=== PATIENT | male | born 1975 | race Caucasian/White ===

== ENCOUNTER 2020-10-10 11:37 | Emergency (ER) | payer SELFPAY ==
[2020-10-10 13:20] LABS: Urine Blood 2+ (Negative); Urine Glucose Negative (Negative); Urine Protein 1+ (Negative); Urine Specific Gravity 1.025 (1.005-1.030); Urine pH 5.5 (5.0-7.0)
[2020-10-10 13:48] LABS: Urine Bacteria <20 /HPF (NONE SEEN); Urine RBC 20-50 /HPF (NONE SEEN)
--- NOTE | 2020-10-10 14:10 | EDPHYS ---
Physician Documentation [facility] Name: Chava Muniz Age: 45 yrs Sex: Male : 1975 Arrival Date: 10/10/2020 Time: 11:39 Bed 20 Private MD: ED Physician Braden Perez HPI: 10/10 13:14 This 45 yrs old Male presents to ER via Ambulatory with complaints of Penile pm1 Pain - swelling. 13:14 The patient presents with complaint of partial erection. Onset: The symptoms/episode pm1 began/occurred this morning, at 02:00. Modifying factors: The symptoms are alleviated by nothing, the symptoms are aggravated by nothing. Associated signs and symptoms: Pertinent positives: hematuria and burning with urination, Pertinent negatives: abdominal pain, fever, flank pain. Severity of symptoms: in the emergency department the symptoms have improved, No erection present. The patient has not experienced similar symptoms in the past. The patient has been recently seen by a physician: with different complaint(s), given antibiotic for dental pain yesterday by the dentist. Cialis last used 2 weeks ago. Historical: - Allergies: 12:26 No Known Allergies; ss - PMHx: 12:26 Kidney stones; Hypertension; adhd; ss - PSHx: 12:26 Appendectomy; Adenoids; Tonsillectomy; ss - Immunization history:: Adult Immunizations up to date. - Social history:: Smoking status: Patient denies any tobacco usage or history of. ROS: 13:14 Constitutional: Negative for fever, chills, and weight loss, Cardiovascular: Negative pm1 for chest pain, palpitations, and edema, Respiratory: Negative for shortness of breath, cough, wheezing, and pleuritic chest pain, Abdomen/GI: Negative for abdominal pain, nausea, vomiting, diarrhea, and constipation, Back: Negative for injury and pain, MS/Extremity: Negative for injury and deformity, Skin: Negative for injury, rash, and discoloration, Neuro: Negative for headache, weakness, numbness, tingling, and seizure. 13:14 : Positive for hematuria, burning with urination, penile pain, Negative for penile discharge, testicular pain Exam: 13:14 Constitutional: This is a well developed, well nourished patient who is awake, alert, pm1 and in no acute distress. Head/Face: Normocephalic, atraumatic. 13:14 Skin: Warm, dry with normal turgor. Normal color with no rashes, no lesions, and no evidence of cellulitis. MS/ Extremity: Pulses equal, no cyanosis. Neurovascular intact. Full, normal range of motion. 13:14 Cardiovascular: Exam negative for acute changes, Rate: normal, Rhythm: regular, Pulses: no pulse deficits are appreciated. 13:14 Respiratory: Exam negative for acute changes, respiratory distress, shortness of breath. 13:14 Abdomen/GI: Inspection: abdomen appears normal, Palpation: abdomen is soft and non-tender, in all quadrants. 13:14 : Male external genitalia: normal, no erection present, no tenderness or masses present to testicles, penile discharge, is absent, swelling, is not appreciated, tenderness, of the head of penis is noted, that is mild, Bladder: is normal, non-distended, non-tender, bladder scan 11 mL . 13:14 : [employer] [facility]. pm1 Vital Signs: 12:19 BP 126 / 92; Pulse 85; Resp 22; Temp 98.2(TE); Pulse Ox 100% on R/A; Weight 122.47 kg; ss Height 6 ft. 0 in. (182.88 cm); Pain 9/10; 13:20 BP 128 / 95; Pulse 83; Resp 23; Pulse Ox 100% ; rb3 14:19 BP 127 / 90; Pulse 85; Resp 21; Pulse Ox 100% ; rb3 12:19 Body Mass Index 36.62 (122.47 kg, 182.88 cm) MDM: 12:52 Patient medically screened. pm1 13:14 Refusal of service: The patient/guardian displays adequate decision making capability pm1 and despite a detailed discussion of alternatives, benefits, risks, and consequences refuses: prostate examination. 14:08 Data reviewed: vital signs. Data interpreted: Pulse oximetry: on room air is 100 %. pm1 Interpretation: normal. Counseling: I had a detailed discussion with the patient and/or guardian regarding: the historical points, exam findings, and any diagnostic results supporting the discharge/admit diagnosis, lab results, the need for outpatient follow up, for definitive care, a urologist, to return to the emergency department if symptoms worsen or persist or if there are any questions or concerns that arise at home. 14:08 ED course: Instructed to follow up with urology for need to further evaluate hematuria pm1 and possible cytoscopy. 10/10 13:00 Order name: Urine Microscopic Only; Complete Time: 13:56 pm1 10/10 13:20 Order name: Urine Dipstick-Ancillary; Complete Time: 13:41 EDMS 10/10 13:00 Order name: Urine Dipstick-Ancillary (obtain specimen); Complete Time: 13:24 pm1 10/10 13:00 Order name: Bladder Scanner; Complete Time: 13:42 pm1 10/10 13:50 Order name: Urine Culture EDMS Administered Medications: No medications were administered Disposition: 15:13 Co-signature as Attending Physician, Braden Perez MD. rn Disposition: 10/10/20 14:09 Discharged to Home. Impression: Hematuria. - Condition is Stable. - Discharge Instructions: Hematuria, Adult. - Prescriptions for Bactrim DS 800- 160 mg Oral Tablet - take 1 tablet by ORAL route every 12 hours for 10 days; 20 tablet. - Medication Reconciliation Form, Thank You Letter, Antibiotic Education, Prescription Opioid Use form. - Follow up: Emergency Department; When: As needed; Reason: Worsening of condition. Follow up: Private Physician; When: 2 - 3 days; Reason: Recheck today's complaints, Continuance of care, Re-evaluation by your physician. Follow up: Curry Tan MD; When: 2 - 3 days; Reason: Recheck today's complaints, Continuance of care, Re-evaluation by your physician. - Problem is new. - Symptoms have improved. Signatures: Dispatcher [employer] EDUT Braden Perez MD MD rn Smirch, Shelby, RN RN ss Dejon Ivory, RELATIONSHIP BANKER RELATIONSHIP BANKER pm1 Kimberly Francois, RN RN rb3 Corrections: (The following items were deleted from the chart) 14:10 14:09 10/10/2020 14:09 Discharged to Home. Impression: Hematuria. Condition is Stable. pm1 Forms are Medication Reconciliation Form, Thank You Letter, Antibiotic Education, Prescription Opioid Use. Follow up: Emergency Department; When: As needed; Reason: Worsening of condition. Follow up: Private Physician; When: 2 - 3 days; Reason: Recheck today's complaints, Continuance of care, Re-evaluation by your physician. Problem is new. Symptoms have improved. pm1 14:28 14:10 10/10/2020 14:09 Discharged to Home. Impression: Hematuria. Condition is Stable. rb3 Forms are Medication Reconciliation Form, Thank You Letter, Antibiotic Education, Prescription Opioid Use. Follow up: Emergency Department; When: As needed; Reason: Worsening of condition. Follow up: Private Physician; When: 2 - 3 days; Reason: Recheck today's complaints, Continuance of care, Re-evaluation by your physician. Follow up: Curry Tan; When: 2 - 3 days; Reason: Recheck today's complaints, Continuance of care, Re-evaluation by your physician. Problem is new. Symptoms have improved. pm1
--- NOTE | 2020-10-10 14:10 | ER ---
Nurse's Notes [facility] Name: Chava Muniz Age: 45 yrs Sex: Male : 1975 Arrival Date: 10/10/2020 Time: 11:39 Bed 20 Private MD: Diagnosis: Hematuria Presentation: 10/10 12:19 Chief complaint: Patient states: "Penis at "half mast" since this morning at 0230. Pt ss reports blood in urine as well. Hx of kidney stones. Coronavirus screen: Client denies travel out of the [place] in the last 14 days. Ebola Screen: Patient denies exposure to infectious person. Patient denies travel to an Ebola-affected area in the 21 days before illness onset. Initial Sepsis Screen: Does the patient meet any 2 criteria? No. Patient's initial sepsis screen is negative. Does the patient have a suspected source of infection? No. Patient's initial sepsis screen is negative. Risk Assessment: Do you want to hurt yourself or someone else? Patient reports no desire to harm self or others. Onset of symptoms was October 10, 2020. 12:19 Method Of Arrival: Ambulatory ss 12:19 Acuity: ALLA 2 ss Historical: - Allergies: 12:26 No Known Allergies; ss - PMHx: 12:26 Kidney stones; Hypertension; adhd; ss - PSHx: 12:26 Appendectomy; Adenoids; Tonsillectomy; ss - Immunization history:: Adult Immunizations up to date. - Social history:: Smoking status: Patient denies any tobacco usage or history of. Screenin:25 Abuse screen: Denies threats or abuse. Nutritional screening: No deficits noted. rb3 Tuberculosis screening: No symptoms or risk factors identified. Fall Risk None identified. Assessment: 12:25 General: Appears uncomfortable, Behavior is anxious, Denies fever. Pain: Complains of rb3 pain in Penile Pain currently is 8 out of 10 on a pain scale. Pain began this morning. Neuro: Level of Consciousness is awake, alert, obeys commands, Oriented to person, place, time, situation. Cardiovascular: Patient's skin is warm and dry. Respiratory: Airway is patent Respiratory effort is even, unlabored, Respiratory pattern is regular, symmetrical. GI: No signs and/or symptoms were reported involving the gastrointestinal system. : Reports pain with urination, Reports that urine is dark yellow and this morning he passed a blood clot while urinating. Pt. stated, "I have had a partial erection since early this morning and it will not go down.". 12:25 General: Denies taking any ED medications or injuring himself.. rb3 13:25 Reassessment: Patient appears in no apparent distress at this time. Pt. reports that rb3 his penis has went down and he is feeling better now. 14:25 Reassessment: Patient appears in no apparent distress at this time. Patient and/or rb3 family updated on plan of care and expected duration. Pain level reassessed. Patient is alert, oriented x 3, equal unlabored respirations, skin warm/dry/pink. Patient states feeling better. Patient states symptoms have improved. Vital Signs: 12:19 BP 126 / 92; Pulse 85; Resp 22; Temp 98.2(TE); Pulse Ox 100% on R/A; Weight 122.47 kg; ss Height 6 ft. 0 in. (182.88 cm); Pain 9/10; 13:20 BP 128 / 95; Pulse 83; Resp 23; Pulse Ox 100% ; rb3 14:19 BP 127 / 90; Pulse 85; Resp 21; Pulse Ox 100% ; rb3 12:19 Body Mass Index 36.62 (122.47 kg, 182.88 cm) ss ED Course: 11:39 Patient arrived in ED. as 12:21 Triage completed. ss 12:23 Kimberly Francois, RN is Primary Nurse. rb3 12:25 Patient has correct armband on for positive identification. Bed in low position. Call rb3 light in reach. Side rails up X 1. Pulse ox on. NIBP on. 12:26 Arm band placed on right wrist. ss 12:27 Dejon Ivory NP is PHCP. pm1 12:27 Braden Perez MD is Attending Physician. pm1 14:10 Curry Tan MD is Referral Physician. pm1 14:28 No provider procedures requiring assistance completed. Patient did not have IV access rb3 during this emergency room visit. Administered Medications: No medications were administered Outcome: 14:09 Discharge ordered by . pm1 14:28 Discharged to home ambulatory. rb3 14:28 Condition: stable 14:28 Discharge instructions given to patient, Instructed on discharge instructions, follow up and referral plans. medication usage, Demonstrated understanding of instructions, follow-up care, medications, Prescriptions given X 1. 14:28 Patient left the ED. rb3 Signatures: Rosemarie Birmingham Shelby, RN RN Dejon Ivory, PIER HAND PIER HAND pm1 Kimberly Francois RN RN rb3 Corrections: (The following items were deleted from the chart) 14:26 12:19 Chief complaint: Patient states: "Penis at "half mass" since this mornning at 0230. Pt reports blood in urine as well. Hx of kidney stones.
[2020-10-10 14:33] VITALS: TEMP 98.2; O2SAT 100
[2020-10-10 14:36] VITALS: BP 127/90
== END 2020-10-10 14:28 | disposition home or self-care (01) ==
LOC: ER 11:37
DX: R31.9 Hematuria, unspecified (principal); I10 Essential (primary) hypertension
CPT/HCPCS: 81003; 81015; 87086; 87088; 99283